=== PATIENT | male | born 1980 | race Caucasian/White ===

== ENCOUNTER 2018-05-08 15:07 | Emergency (ER) | payer SELFPAY ==
[~2018-05-08] VITALS: Ht 165.1 cm; Wt 64.9 kg
[2018-05-08 15:15] VITALS: BP 127/67; Ht 165.1 cm; Wt 64.9 kg
== END 2018-05-08 16:38 | disposition home or self-care (01) ==
LOC: ED 15:07
DX: S00.81XA Abrasion of other part of head, initial encounter (principal); S49.92XA Unspecified injury of left shoulder and upper arm, initial encounter; S39.91XA Unspecified injury of abdomen, initial encounter; W11.XXXA Fall on and from ladder, initial encounter; Y93.89 Activity, other specified; Y92.89 Other specified places as the place of occurrence of the external cause; Y99.8 Other external cause status